=== PATIENT | male | born 1975 | race Caucasian/White ===

== ENCOUNTER 2020-01-17 13:11 | Emergency (ER) | payer MEDICAID, SELFPAY ==
[2020-01-17] VITALS (7 sets, daily range): BP systolic 145–151; BP diastolic 90–123; PULSE 83–95; RESP 16–20; TEMP 36.6; O2SAT 99–100; BMI 36.6
--- NOTE | 2020-01-17 13:20 | ED.RN ---
PT CURRENTLY DENIES SI, PT'S SISTER REPORTS PT TOLD HER THAT HE WAS SUICIDAL. PT STATES I JUST NEED TO GO SOMEWHERE FOR A WHILE TO GET MY MIND RIGHT.
--- NOTE | 2020-01-17 14:00 | RAD_ITS ---
STUDY: X-RAY CHEST REASON FOR EXAM: Male, 44 years old. MED CLEARANCE. NO CHEST COMPLAINTS. MENTAL HEALTH TECHNIQUE: AP COMPARISON: None. FINDINGS: The lungs are clear but under expanded. There is no demonstrated pleural abnormality. Normal size heart. Normal mediastinum and yusef. Normal visualized pulmonary arteries. Normal visualized aortic arch and descending thoracic aorta. Normal visualized thoracic spine. Normal visualized ribs, clavicles, and shoulders. There is no demonstrated abnormality of the visualized soft tissue structures of the upper abdomen. RAD/Chest 1 View (Portable) IMPRESSION: Nonacute portable x-ray examination of the chest. Electronically Signed: Randy Bruno MD ([place]) at 15:17 EDT , Service support ,
--- NOTE | 2020-01-17 14:01 | EKG12_ITS ---
Test Reason : MENTAL HEALTH Blood Pressure : / mmHG Vent. Rate : 101 BPM Atrial Rate : 101 BPM P-R Int : 192 ms QRS Dur : 080 ms QT Int : 372 ms P-R-T Axes : 058 -20 030 degrees QTc Int : 482 ms Sinus tachycardia Otherwise normal ECG Confirmed by GERI MERCHANT, HANNAH ([id number]), scientific editor MICKY MCMAHAN ([id number]) on 01/19/2020 9:20:42 AM Referred By: ARMINDA Confirmed By:HANNAH NEVAREZ MD
--- NOTE | 2020-01-17 14:06 | NURSING ---
NO OLD EKGS
[2020-01-17 14:17] LABS: Absolute Lymphocyte Count 1.37 X10^3/uL (0.83-4.51); Absolute Neutrophil Count 6.6 X10^3/uL (2.0-7.7); Basophil# 0.09 X10^3/uL; Eosinophil# 0.11 X10^3/uL; Eosinophils% 1.3 % (0-5); Hemoglobin 14.7 g/dL (13.0-16.5); Lymphocyte # 1.37 X10^3/ul (4.0); Lymphocyte % 15.6 % (19-41); Mean Corp Hgb Conc 32.7 g/dL (32-36); Mean Corpuscular Hgb 30.2 pg (27.0-32.0); Mean Corpuscular Volume 92.4 fL (80-94); Monocyte# 0.59 X10^3/uL; Monocyte% 6.7 % (0-10); NRBC Flagged by Analyzer 0 % (0-5); Neutrophil # 6.62 X10^3/uL (2.7-7.7); Neutrophil % 75.3 % (47-70); Platelet Count 373 K/mm3 (150-450); RBC Distribution Width CV 13.6 % (11.6-14.6); RBC Distribution Width SD 45.4 fl (35.1-43.9); Red Blood Count 4.87 M/mm3 (4.6-6.2); White Blood Count 8.8 K/mm3 (4.4-11.0)
[2020-01-17 14:48] LABS: Anion Gap 11 (5-15); BUN 11 mg/dL (7-18); BUN/Creat Ratio 10.1 RATIO (10-20); CPK Total, Creatine Kinase 1294 U/L (39-308); Calcium,Total 8.5 mg/dL (8.5-10.1); Chloride 98 mmol/L (98-107); Creatinine, Serum 1.09 mg/dL (0.70-1.30); EST Glomerular Filtration Rate 78 mL/min (>60); Est Glom Filt Rate - Afr Amer 94 mL/min (>60); Estimated Creatinine Clearance 85.58 ml/min; Glucose 219 mg/dL (74-106); Potassium 3.3 mmol/L (3.5-5.1); Sodium Level 135 mmol/L (136-145)
[2020-01-17 15:02] LABS: Alcohol, Blood (Medical)-Serum < 3.0 mg/dL
[2020-01-17 15:10] LABS: Amphetamine Urine VISTA POSITIVE (<1000 ng/mL); Barbiturate Urine VISTA NEGATIVE (< 200 ng/mL); Benzodiazepine Urine VISTA NEGATIVE (< 200 ng/mL); Cocaine Urine VISTA NEGATIVE (< 300 ng/mL); Ecstacy Urine VISTA NEGATIVE (< 500 ng/mL); Methadone Urine VISTA NEGATIVE (< 300 ng/mL); PCP Urine VISTA NEGATIVE (< 25 ng/mL); THC Urine VISTA NEGATIVE (< 50 ng/mL); Vista UDS pH Range 5
[2020-01-17 15:14] LABS: Bacteria 0 SEEN /hpf (None Seen)
[2020-01-17 15:15] LABS: Color, Urine Yellow (Yellow); Glucose, Dipstick Normal (Normal); Leukocyte Esterase-Dipstick Negative /ul (Negative); Nitrite-Dipstick Negative (Negative); Occult Blood-Urine Negative /ul (Negative); Specific Gravity, Urine 1.025 (1.002-1.030); Urine Clarity Sl. Cloudy (Clear)
[2020-01-17 15:39] LABS: Protein-Dipstick Negative (Negative); Urine Urobilinogen 1 mg/dl (Normal)
[2020-01-17 15:43] LABS: Urine Bilirubin Dipstick 1 mg/dL (Negative)
[2020-01-17 15:44] LABS: Ketone-Dipstick 150 mg/dl (Negative)
--- NOTE | 2020-01-17 15:47 | ED.DCSUM_ITS ---
History of Present Illness Chief Complaint: Mental Health Informant: Patient, Family Onset: Weeks Context: Gradual Onset Timing: Continuous Associated Symptoms: Suicidal Thoughts, Easily distracted, Flight of Ideas, Agitated, Paranoia, Visual Hallucinations Specific plan (suicidal thought): none Narrative: Patient is a 44-year-old male with some type of psychiatric history by it is not clear what presenting with worsening psychiatric symptoms. Patient states his mind is not right. He states he has his normal craziness but is been worsening over the past 1 to 2 weeks. The sister last saw him 1 month ago. She states at that time he been living in his car. Apparently patient recently walked from [place] to [place] recently. He does not complain of some mild leg pain from all the walking. Patient told his sister today that he felt suicidal but denies any active plan. He denies any suicidal ideations for me. Sister also notes that he has been hearing voices and saw other people in the car that were not there. He is also been mumbling more. Patient denies any drug use admits to tobacco and alcohol use. He denies any history of alcohol detox or withdrawal. Patient has been on and off medications in the past but does not know what he is supposed to be on. He denies any other complaints at this time. Past Medical History - Allergies and Home Meds Allergies/Adverse Reactions: Allergies No Known Allergies Allergy (Verified 01/17/20 13:12) Primary Care Physician: Care Physician,No Primary [Primary Care Provider] - Past Medical History: - - Psychiatric illness, unclear what exact diagnosis is Surgical History: noncontributory Lives: Homeless Smoking Status: Smoker, status unknown Review of Systems General: Denies: Chills, Fever, Sweats Eyes: Denies: Visual changes - bilaterally, Diplopia ENT: Denies: Rhinorrhea, Sore throat Cardiovascular: Denies: Chest pain, Palpitations Respiratory: Denies: Dyspnea, Cough, Dyspnea on exertion Gastrointestinal: Denies: Abdominal pain, Nausea, Vomiting, Diarrhea, Melena, Hematochezia Genitourinary: Denies: Dysuria, Hematuria, Frequency Musculoskeletal: Reports: Myalgias - Lower extremities. Denies: Back pain, Extremity Pain Skin: Denies: Rash, Wounds Neurological: Denies: Headache, Weakness, Numbness Psych: Reports: Depression, Suicidal thoughts, - - Auditory and visual hallucinations Physical Exam Vital Signs/Narrative: Vital Signs Temp Pulse Resp BP Pulse Ox 01/17/20 13:12 97.8 F 95 16 151/123 H 100 Inital Vital Signs reviewed: Yes General: Well nourished, Well developed Head: Normocephalic, Atraumatic Eyes: Perrl, EOMI ENT: Moist mucous membranes, No rhinorrhea Neck: Supple, Nontender Cardiovascular: Regular rate, Regular rhythm, No murmurs Respiratory: No distress, CTA bilaterally, Chest nontender Abdomen: Soft, Nontender, Nondistended, Normal bowel sounds Back: Nontender, Normal Inspection Extremities: Nontender, No Edema Skin: Normal color, No rash Neurological: Alert, Oriented x3, Cranial nerves II-XII grossly intact, Normal Strength, Normal Sensation Psych: Poverty of Speech, Hallucinations, Limited Insight, - - Told his sister he was suicidal but currently denies it for me. He never had a plan per the sister. . Negative for: Good Insight, Homicidal thoughts Diagnostic/Tx/Re-eval Clinical Impression(s) from Imaging Studies Chest X-Ray 01/17/20 14:00 IMPRESSION: Nonacute portable x-ray examination of the chest. Electronically Signed: Randy Bruno MD ([place]) at 15:17 EDT , Service support , Laboratory Data 01/17/20 01/17/20 01/17/20 14:10 14:10 14:10 WBC 8.8 RBC 4.87 Hgb 14.7 Hct 45.0 MCV 92.4 MCH 30.2 MCHC 32.7 RDW Std Deviation 45.4 H RDW Coeff of Zaid 13.6 Plt Count 373 MPV 9.0 Immature Gran % (Auto) 0.100 Neut % (Auto) 75.3 H Lymph % (Auto) 15.6 L [place] % (Auto) 6.7 Eos % (Auto) 1.3 Baso % (Auto) 1.0 Absolute Neuts (auto) 6.6 Absolute Lymphs (auto) 1.37 Nucleated RBC % 0 Sodium 135 L Potassium 3.3 L Chloride 98 Carbon Dioxide 26.0 Anion Gap 11 BUN 11 Creatinine 1.09 Estim Creat Clear Calc 85.58 Est GFR (MDRD) Af Amer 94 Est GFR (MDRD) Non-Af 78 BUN/Creatinine Ratio 10.1 Glucose 219 H Calcium 8.5 Total Creatine Kinase 1294 H Urine Color Urine Clarity Urine pH Ur Specific [place] Urine Protein Urine Glucose (UA) Urine Ketones Urine Occult Blood Urine Nitrite Urine Bilirubin Urine Urobilinogen Ur Leukocyte Esterase Urine RBC Urine WBC Ur Squamous Epith Cells Urine Bacteria Urine Mucus Urine Opiates Screen Urine Methadone Screen Ur Barbiturates Screen Ur Phencyclidine Scrn Ur Amphetamines Screen U Methamphetamin-MDMA U Benzodiazepines Scrn Urine Cocaine Screen U Cannabinoids Screen Ur Drug Screen Comment Ethyl Alcohol < 3.0 01/17/20 01/17/20 14:42 14:42 WBC RBC Hgb Hct MCV MCH MCHC RDW Std Deviation RDW Coeff of Zaid Plt Count MPV Immature Gran % (Auto) Neut % (Auto) Lymph % (Auto) [place] % (Auto) Eos % (Auto) Baso % (Auto) Absolute Neuts (auto) Absolute Lymphs (auto) Nucleated RBC % Sodium Potassium Chloride Carbon Dioxide Anion Gap BUN Creatinine Estim Creat Clear Calc Est GFR (MDRD) Af Amer Est GFR (MDRD) Non-Af BUN/Creatinine Ratio Glucose Calcium Total Creatine Kinase Urine Color Yellow Urine Clarity Sl. Cloudy Urine pH 5.0 Ur Specific [place] 1.025 Urine Protein Negative Urine Glucose (UA) Normal Urine Ketones 150 H Urine Occult Blood Negative Urine Nitrite Negative Urine Bilirubin 1 H Urine Urobilinogen 1 H Ur Leukocyte Esterase Negative Urine RBC 0-5 SEEN Urine WBC 0-5 SEEN Ur Squamous Epith Cells 0-5 SEEN Urine Bacteria 0 SEEN Urine Mucus 3+ Urine Opiates Screen NEGATIVE Urine Methadone Screen NEGATIVE Ur Barbiturates Screen NEGATIVE Ur Phencyclidine Scrn NEGATIVE Ur Amphetamines Screen POSITIVE H U Methamphetamin-MDMA NEGATIVE U Benzodiazepines Scrn NEGATIVE Urine Cocaine Screen NEGATIVE U Cannabinoids Screen NEGATIVE Ur Drug Screen Comment Ethyl Alcohol - Rhythm Strip Rhythm Strip: Sinus Tach Rate: 101 Ectopy: None - EKG Initial EKG Interpretation: Sinus Tachycardia, - - Sinus tachycardia at a rate of 101 Left axis deviation Normal intervals Normal ST segments No prior EKG available for comparison Prior: No Prior Patient is evaluated for worsening psychiatric symptoms including paranoia, inability to care for himself and questionable suicidal ideations. Patient currently denies any suicidal ideations but he does not appear to be able to care for himself and I do think we will requires emergent psychiatric evaluation. Patient is a mildly elevated CPK but normal kidney function. I am not concerned for rhabdomyolysis and this will be treated with a liter of IV fluids. Patient is medically cleared and pending disposition from the counseling center. Will be signed out to oncoming provider for final disposition. ED Disposition - Plan for ED Patient: Diagnosis: Psychosis, Elevated CPK, Dehydration Referrals: Care Physician,No Primary [Primary Care Provider] -
[2020-01-17 15:53] LABS: Mucous, Urine 3+ /hpf (<or=2+); Red Blood Cells-Urine 0-5 SEEN /hpf (0-5); Squamous Epithelial Cells - UA 0-5 SEEN /hpf (0-5); White Blood Cells 0-5 SEEN /hpf (0-5)
--- NOTE | 2020-01-17 16:13 | NURSING ---
FAXED CHART TO [facility]IL[facility]ANI[facility]
[2020-01-17] MEDS: 0.9% Normal Saline 1,000 ML 999 ML IV (16:38)
--- NOTE | 2020-01-17 22:06 | ED.RN ---
[facility] CALLED IN AND TALKING TO PATIENT AT THIS TIME
[2020-01-18 01:00] VITALS: BP 102/87; PULSE 66; RESP 16; TEMP 36.6; O2SAT 98
--- NOTE | 2020-01-18 02:01 | ED.RN ---
patient information has been faxed to [facility] for possible admission
[2020-01-18 04:09] VITALS: RESP 16
--- NOTE | 2020-01-18 05:12 | ED.RN ---
patient has been accepted to [facility] [id number]
[2020-01-18 05:48] VITALS: BP 162/94; PULSE 65; RESP 15; TEMP 36.8; O2SAT 100
== END 2020-01-18 07:08 ==
LOC: ED 13:59
PROVIDERS: Emergency Provider Emergency Medicine
DX: E86.0 Dehydration (principal); F29 Unspecified psychosis not due to a substance or known physiological condition; R74.8 Abnormal levels of other serum enzymes; Z59.0 Homelessness
CPT/HCPCS: 71045; 80048; 80307; 80320; 81001; 82550; 85025; 93005; 96360; 99285; J7030; A4216; G0480